=== PATIENT | male | born 1980 | race African-American/Black ===

== ENCOUNTER 2017-04-21 20:02 | Emergency (ER) | payer MEDICAID ==
[~2017-04-21] VITALS: Ht 185.4 cm; Wt 105.0 kg
[2017-04-21 20:27] VITALS: BP 121/69
== END 2017-04-21 22:56 | disposition left against medical advice (07) ==
LOC: ER 20:30
DX: Z53.21 Procedure and treatment not carried out due to patient leaving prior to being seen by health care provider (principal)